=== PATIENT | male | born 1975 | race African-American/Black ===

== ENCOUNTER 2017-04-25 09:10 | Outpatient (CLI) | payer MEDICARE | END 2017-04-25 10:05 | disposition home or self-care (01) | LOC: D.OPS 09:10 | DX: T85.9XXA Unspecified complication of internal prosthetic device, implant and graft, initial encounter (principal); Z53.9 Procedure and treatment not carried out, unspecified reason ==

== ENCOUNTER → 2017-05-01 16:30 | Outpatient (CLI) | payer MEDICARE ==
[2017-05-01 19:23] LABS: BASOPHILS 0.3 % (0-2); EOSINOPHILS 11.7 % (0-7); HEMATOCRIT 34.5 % (42.0-54.0); HEMOGLOBIN 11.3 g/dL (13.5-17.5); IMMATURE GRANULOCYTES 0.1 % (0-5); LYMPHOCYTES 28.1 % (15-50); MCH 27.5 pg (26.0-34.0); MCHC 32.8 g/dL (31.0-37.0); MCV 83.9 fL (80.0-100.0); MEAN PLATELET VOLUME 9.3 fL (7.4-10.4); MONOCYTES 8.2 % (2-11); NEUTROPHILS 51.6 % (40-80); PLATELET COUNT 308 10x3/uL (130-400); RBC 4.11 10x6/uL (4.20-6.10); RDW 14.4 % (11.5-14.5); WBC 8.9 10x3/uL (4.8-10.8)
[2017-05-01 19:57] LABS: C-REACTIVE PROTEIN 2.9 mg/dL (0.0-0.9); CALC OSMOLALITY 269 mosm/kg (275-300); CALCIUM 9.4 mg/dL (8.5-10.1); CARBON DIOXIDE 29.5 mmol/L (21.0-32.0); CHLORIDE - SERUM 100 mmol/L (98-107); CREATININE - SERUM 0.7 mg/dL (0.6-1.3); GLUCOSE 76 mg/dL (74-106); POTASSIUM - SERUM 4.3 mmol/L (3.5-5.1); SODIUM 136 mmol/L (136-145); UREA NITROGEN 11 mg/dL (7-18); eGFR NON AFRICAN AMERICAN > 90 mL/min (90-120)
[2017-05-01 20:45] LABS: ERYTHROCYTE SEDIMENTATION RATE 99 mm/hr (0-15)
== END | disposition home or self-care (01) ==
LOC: D.LABREF 16:30
PROVIDERS: Student in an Organized Health Care Education/Training Program
DX: M46.20 Osteomyelitis of vertebra, site unspecified (principal); Z51.81 Encounter for therapeutic drug level monitoring; Z79.2 Long term (current) use of antibiotics

== ENCOUNTER → 2017-05-04 08:10 | Outpatient (CLI) | payer MEDICARE ==
[2017-05-04 09:41] LABS: CREATININE - SERUM 0.9 mg/dL (0.6-1.3); VANCOMYCIN - TROUGH 11.8 ug/mL (10.0-20.0)
== END | disposition home or self-care (01) ==
LOC: D.LABREF 08:10
PROVIDERS: Student in an Organized Health Care Education/Training Program
DX: Z51.81 Encounter for therapeutic drug level monitoring (principal); Z79.2 Long term (current) use of antibiotics

== ENCOUNTER → 2017-05-08 08:33 | Outpatient (CLI) | payer MEDICARE ==
[2017-05-08 10:57] LABS: BASOPHILS 0.4 % (0-2); EOSINOPHILS 12.2 % (0-7); HEMATOCRIT 32.2 % (42.0-54.0); HEMOGLOBIN 10.7 g/dL (13.5-17.5); IMMATURE GRANULOCYTES 0.2 % (0-5); LYMPHOCYTES 30.8 % (15-50); MCH 27.2 pg (26.0-34.0); MCHC 33.2 g/dL (31.0-37.0); MCV 81.9 fL (80.0-100.0); MONOCYTES 8.8 % (2-11); NEUTROPHILS 47.6 % (40-80); PLATELET COUNT 280 10x3/uL (130-400); RBC 3.93 10x6/uL (4.20-6.10); RDW 14.5 % (11.5-14.5); WBC 8.2 10x3/uL (4.8-10.8)
[2017-05-08 11:03] LABS: C-REACTIVE PROTEIN 3.6 mg/dL (0.0-0.9); CREATININE - SERUM 0.7 mg/dL (0.6-1.3); VANCOMYCIN - TROUGH 10.9 ug/mL (10.0-20.0)
[2017-05-08 12:07] LABS: ERYTHROCYTE SEDIMENTATION RATE 101 mm/hr (0-15)
== END | disposition home or self-care (01) ==
LOC: D.LABREF 08:33
PROVIDERS: Student in an Organized Health Care Education/Training Program
DX: M46.20 Osteomyelitis of vertebra, site unspecified (principal); B95.62 Methicillin resistant Staphylococcus aureus infection as the cause of diseases classified elsewhere

== ENCOUNTER → 2017-05-10 09:02 | Outpatient (CLI) | payer MEDICARE ==
[2017-05-10 10:41] LABS: CREATININE - SERUM 0.8 mg/dL (0.6-1.3); VANCOMYCIN - RANDOM 14.2 ug/mL (10.0-20.0)
== END | disposition home or self-care (01) ==
LOC: D.LABREF 09:02
PROVIDERS: Student in an Organized Health Care Education/Training Program
DX: M46.20 Osteomyelitis of vertebra, site unspecified (principal)

== ENCOUNTER → 2017-05-15 10:24 | Outpatient (CLI) | payer MEDICARE ==
[2017-05-15 13:41] LABS: BASOPHILS 0.2 % (0-2); EOSINOPHILS 4.2 % (0-7); HEMATOCRIT 30.8 % (42.0-54.0); IMMATURE GRANULOCYTES 0.2 % (0-5); LYMPHOCYTES 13.5 % (15-50); MCHC 32.5 g/dL (31.0-37.0); MEAN PLATELET VOLUME 9.1 fL (7.4-10.4); MONOCYTES 12.6 % (2-11); NEUTROPHILS 69.3 % (40-80); PLATELET COUNT 255 10x3/uL (130-400); RBC 3.71 10x6/uL (4.20-6.10); RDW 15.6 % (11.5-14.5); WBC 12.3 10x3/uL (4.8-10.8)
[2017-05-15 13:52] LABS: CREATININE - SERUM 1.5 mg/dL (0.6-1.3); VANCOMYCIN - TROUGH 34.9 ug/mL (10.0-20.0)
[2017-05-15 13:54] LABS: C-REACTIVE PROTEIN 28.2 mg/dL (0.0-0.9)
[2017-05-15 15:10] LABS: ERYTHROCYTE SEDIMENTATION RATE 95 mm/hr (0-15)
== END | disposition home or self-care (01) ==
LOC: D.LABREF 10:24
PROVIDERS: Student in an Organized Health Care Education/Training Program
DX: M46.20 Osteomyelitis of vertebra, site unspecified (principal)

== ENCOUNTER → 2017-05-21 16:01 | Outpatient (CLI) | payer MEDICARE ==
[2017-05-21 20:09] LABS: CALC OSMOLALITY 269 mosm/kg (275-300); CALCIUM 8.9 mg/dL (8.5-10.1); CARBON DIOXIDE 25.2 mmol/L (21.0-32.0); CHLORIDE - SERUM 99 mmol/L (98-107); POTASSIUM - SERUM 3.7 mmol/L (3.5-5.1); SODIUM 136 mmol/L (136-145); UREA NITROGEN 16 mg/dL (7-18); eGFR NON AFRICAN AMERICAN 87 mL/min (90-120)
[2017-05-21 20:19] LABS: GLUCOSE 49 mg/dL (74-106)
== END | disposition home or self-care (01) ==
LOC: D.LABREF 16:01
PROVIDERS: Student in an Organized Health Care Education/Training Program
DX: N17.9 Acute kidney failure, unspecified (principal)

== ENCOUNTER → 2017-06-15 11:10 | Outpatient (CLI) | payer MEDICARE ==
[~2017-06-15 11:10] MED LIST: ACETAMINOPHEN325 MG PO; CALMOSEPTINE OI71 GM TOPICAL; CLEOCIN HCL150 MG PO; FERREX 150 PLUS1 CAP PO; GLIPIZIDE10 MG PO; HUMULIN R100 U/ML SC; LOVASTATIN20 MG PO; OMEGA 3 FISH OI1 CAP PO; OMNICEF300 MG PO; VITAMIN B-1100 M1 PO; VITAMIN B650 MG PO; VITAMIN C1000 MG PO; VITAMIN D31000 UNI2 PO; ZOFRAN4 MG PO; ZOSYN 3.3753.375 G1 IV
[2017-06-15 13:05] LABS: BASOPHILS 0.4 % (0-2); EOSINOPHILS 11.2 % (0-7); HEMATOCRIT 32.8 % (42.0-54.0); HEMOGLOBIN 11.3 g/dL (13.5-17.5); IMMATURE GRANULOCYTES 0.1 % (0-5); LYMPHOCYTES 32.6 % (15-50); MCH 27.8 pg (26.0-34.0); MCHC 34.5 g/dL (31.0-37.0); MCV 80.6 fL (80.0-100.0); MEAN PLATELET VOLUME 9.4 fL (7.4-10.4); NEUTROPHILS 49.7 % (40-80); PLATELET COUNT 277 10x3/uL (130-400); RBC 4.07 10x6/uL (4.20-6.10); RDW 13.8 % (11.5-14.5); WBC 7.1 10x3/uL (4.8-10.8)
[2017-06-15 13:27] LABS: C-REACTIVE PROTEIN 4.2 mg/dL (0.0-0.9)
[2017-06-15 14:11] LABS: ERYTHROCYTE SEDIMENTATION RATE 125 mm/hr (0-15)
[2017-08-24 14:18] VITALS: BMI 32.6
== END | disposition home or self-care (01) ==
LOC: D.LABREF 11:10
PROVIDERS: Student in an Organized Health Care Education/Training Program
DX: M46.20 Osteomyelitis of vertebra, site unspecified (principal); Z51.81 Encounter for therapeutic drug level monitoring; Z79.2 Long term (current) use of antibiotics

== ENCOUNTER → 2017-07-06 14:06 | Outpatient (CLI) | payer MEDICARE ==
[2017-07-06 16:48] LABS: ERYTHROCYTE SEDIMENTATION RATE 55 mm/hr (0-15)
[2017-08-24 14:18] VITALS: BMI 32.6
== END | disposition home or self-care (01) ==
LOC: D.LABREF 14:06
PROVIDERS: Internal Medicine
DX: Z51.81 Encounter for therapeutic drug level monitoring (principal); Z79.2 Long term (current) use of antibiotics; M46.20 Osteomyelitis of vertebra, site unspecified

== ENCOUNTER 2017-07-12 10:04 | Inpatient (IN) | payer MEDICARE ==
[2017-07-12] VITALS (12 sets, daily range): BP systolic 80–113; BP diastolic 48–73; BMI 32.8
[~2017-07-12] VITALS: Ht 175.3 cm; Wt 107.7 kg
--- NOTE | ~2017-07-12 | OP ---
PATIENT NAME: ADRIANA MARTINEZ MEDICAL RECORD: [id number] :71 LOCATION:D.M2 D.2105 ADMISSION DATE:07/12/17 SURGEON: RODRIGUE OWUSU MD DATE OF OPERATION: 07/25/2017 PROCEDURE: Transesophageal Note. After general sedation via TIVA anesthesia, transesophageal Omniplane probe was placed down the distal esophagus and proximal stomach without difficulty. FINDINGS: LVH is present. LV internal dimension is normal. Wall motion normal. EF is greater than or equal to 55%. Aortic valve is tricuspid with excellent valve excursion. No evidence of vegetation. Left atrium appears normal dimensions. Left atrial appendage appears normal. Mitral valve appears with normal thickness with no evidence of vegetation. Right-sided chambers appear grossly normal. Tricuspid valve is well visualized. No evidence of vegetation. IMPRESSION: No evidence of vegetation. Normal cardiac valves. TRANSINT:[id number] Voice Confirmation ID: [id number] DOCUMENT ID: [id number] RODRIGUE OWUSU MD at 1132 CC: [id number] DICTATION DATE: 07/25/17 1432 CLOTH DYE RANGE OPERATOR: 07/25/17 1447 ADM IN [facility] [address] [id number]
--- NOTE | ~2017-07-12 | HEMODYNAMI ---
PATIENT:ADRIANA MARTINEZ MEDICAL RECORD: [id number] : 71 LOCATION:[facility] D.2105 ADMISSION DATE: 07/12/17 Generatedon:07/25/201714:40 Patient name: ADRIANA MARTINEZ Patient #: [id number] SSN: : 1975 Date of study: 07/25/2017 Page: Of Hemodynamic Procedure Report Patient Data Patient Demographics Procedure consent was obtained First Name: ADRIANA Gender: Male Last Name: JUAN : 1975 Patient #: [id number] Age: 42 year(s) Race: Black Additional ID: [id number] Contact details Address: [facility] [address] State: [place] City: [facility] Zip code: [address] Admission Admission Data Admission Date: 07/12/2017 Admission Time: 13:22 Room #: D.2105 Procedure Procedure Types Cath Procedure Diagnostic Procedure MASON Procedure Description Procedure Date Procedure Date: 07/25/2017 Procedure Start Time: 14:25 Procedure End Time: 14:33 Procedure Staff Name Function Finesse Parrish MD Performing Physician Tyrell Rico RT Monitor Morgan Thomas RN Nurse Ruben Condon Jr, CRNA Additional personnel Camille Garner Truck Driver Supervisor Procedure Data Cath Procedure Estimated blood loss: 0 ml Procedure Complications No complications Hemodynamics Rest Pre Cath Intra NCS Post Cath Vital Signs Time Heart Resp SPO2 etCO2 NIBP Rhythm Pain Sedation Rate (ipm) (%) (mmHg) (mmHg) Status Level (bpm) 14:20:38 95 15 97 0 Disturbed NSR 0 (11) 10(A) , No pain 14:22:31 90 4 96 0 120/69(86) NSR 0 (11) 10(A) , No pain 14:26:43 85 20 100 31.3 102/63(77) NSR 0 (11) 10(A) , No pain 14:30:52 84 18 100 29.8 109/59(79) NSR 0 (11) 10(A) , No pain Procedure Log Time Note 13:45:46 Tyrell Rico RT(R) sent for patient. Start room use. 13:51:47 Time tracking: Regular hours (M-F 7:00 - 5:00) 13:51:51 Plan of Care:Hemodynamics will remain stable., Cardiac rhythm will remain stable., Comfort level will be maintained., Respiratory function will remain adequate., Patient/ family verbilizes understanding of procedure., Procedure tolerated without complication., Recovers from procedure without complications.. 14:00:26 Ruben Condon Jr, CRNA present and monitoring patient for TIVA. 14:18:59 Vital chart was started 14:21:48 Camille Letart Meteorology Teacher present for MASON. 14:24:[address] [facility] to CCL 3. Patient remains on bed/stretcher for procedure. 14:24:08 Warm blankets applied, and srini hugger turned on for patient comfort. 14:24:09 Correct patient and procedure confirmed by team. 14:24:10 Signed procedure consent form obtained from patient. 14:24:10 ECG and BP/O2 sat monitors applied to patient. 14:24:13 Pre-procedure instructions explained to patient. 14:24:13 Pre-op teaching completed and patient verbalized understanding. 14:24:16 Family in patients room. 14:24:18 Patient NPO since Midnight. 14:24:32 Is the patient allergic to Iodine/contrast media? No. 14:24:34 Is patient on blood thinner?No 14:24:37 Patient diabetic? Yes. 14:24:38 If diabetic: On Metformin? Unknown 14:24:41 Previous problem with sedation/anesthesia? No ? 14:24:42 Snore? Yes 14:24:43 Sleep apnea? No 14:24:44 Deviated septum? No 14:24:45 Opens mouth fully? Yes 14:24:46 Sticks out tongue? Yes 14:24:51 Airway obstruction? No ? 14:24:53 Dentures? No ? 14:24:57 Patient pain scale 0/10 ?. 14:25:01 IV patent on arrival in right forearm with 0.9% NaCl at [facility]. 14:25:03 Lab results completed and on chart. 14:25:05 Alarms reviewed by Sheri Cervantes 14:25:05 --------ALL STOP TIME OUT------ 14:25:06 Final Timeout: patient, procedure, and site verified with staff and physician. All members of the team are in agreement. 14:25:12 Physical assessment completed. ASA score P 4 - A patient with severe systemic disease that is a constant threat to life as per Finesse Parrish MD. 14:25:21 Sedation plan: TIVA Medication:Propofol 14::29 Procedure started. 14::29 Full Disclosure recording started 14:26:54 MASON started. 14:29:18 MASON completed. 14:29:23 Procedure ended.(Physican Out) 14:32:25 Post-procedure physical assessment completed. ASA score P 4 - A patient with severe systemic disease that is a constant threat to life as per Finesse Parrish MD. 14:32:29 Post procedure rhythm: unchanged. 14:32:31 Estimated blood loss: 0 ml 14:32:33 Post procedure instruction explained to patient.Patient verbalizes understanding. 14:32:33 Patient needs reinforcement of post procedure teaching. 14:32:37 Procedure and supply charges have been captured, reviewed, submitted and are correct. 14:32:40 Procedure Complication : No complications 14:33:01 Vital chart was stopped 14:33:01 See physician's report for complete and final results. 14:33:04 Report given to Med II. 14:33:08 Patient transfered to Med II with Bed. 14:33:10 Procedure ended. 14:33:10 Full Disclosure recording stopped 14:33:13 End room use (Document Last) Signature Audit Elnora Stage Time Signature Unsigned Intra-Procedure 07/25/2017 Tyrell Rico 2:40:08 PM RT(R) Signatures Monitor : Tyrell Rico RT Signature : Date : Time : [id number] [facility] [place] [address]
[2017-07-12 11:22] LABS: APPEARANCE TURBID (CLEAR); BILIRUBIN NEGATIVE (NEGATIVE); COLOR YELLOW (YELLOW); GLUCOSE NEGATIVE (NEGATIVE); KETONE NEGATIVE (NEGATIVE); NITRITE POSITIVE (NEGATIVE); PROTEIN 1+ mg/dL (NEGATIVE); SPECIFIC GRAVITY 1.015 (1.005-1.020); UROBILINOGEN NORMAL (NORMAL)
[2017-07-12 11:23] LABS: BACTERIA MANY /hpf (NONE SEEN); EPITHELIAL CELLS RARE /hpf (0-5); RED CELLS - URINE NONE SEEN /hpf (0-5); TRIPLE PHOSPHATE CRYSTALS 25-50 /hpf (NONE SEEN)
[2017-07-12 11:32] LABS: INR 1.53 (0.85-1.17); PROTIME 17.9 SECONDS (11.6-15.0)
[2017-07-12 11:36] LABS: KETONE - SERUM NEGATIVE (NEGATIVE)
[2017-07-12 11:43] LABS: HEMATOCRIT 35.1 % (42.0-54.0); HEMOGLOBIN 11.9 g/dL (13.5-17.5); MCH 28.5 pg (26.0-34.0); MCHC 33.9 g/dL (31.0-37.0); MCV 84.2 fL (80.0-100.0); MEAN PLATELET VOLUME 9.2 fL (7.4-10.4); PLATELET COUNT 225 10x3/uL (130-400); RBC 4.17 10x6/uL (4.20-6.10); RDW 15.7 % (11.5-14.5); WBC 34.9 10x3/uL (4.8-10.8)
[2017-07-12 11:53] LABS: ALBUMIN 2.9 g/dL (3.4-5.0); ALKALINE PHOSPHATASE 81 U/L (46-116); ALT (SGPT) 23 U/L (10-68); CALC OSMOLALITY 283 mosm/kg (275-300); CALCIUM 8.8 mg/dL (8.5-10.1); CARBON DIOXIDE 17.7 mmol/L (21.0-32.0); CHLORIDE - SERUM 102 mmol/L (98-107); CREATINE KINASE 203 UL (21-232); CREATININE - SERUM 4.8 mg/dL (0.6-1.3); LIPASE 52 U/L (73-393); MAGNESIUM - SERUM 1.3 mg/dL (1.8-2.4); POTASSIUM - SERUM 5.1 mmol/L (3.5-5.1); PRO BNP 1101 pg/mL (0-125); PROTEIN - SERUM 8.1 g/dL (6.4-8.2); SODIUM 135 mmol/L (136-145); TROPONIN-I < 0.017 ng/mL (0.000-0.060); UREA NITROGEN 33 mg/dL (7-18); eGFR NON AFRICAN AMERICAN 14 mL/min (90-120)
[2017-07-12 11:56] LABS: GLUCOSE 225 mg/dL (74-106)
[2017-07-12 13:38] LABS: APPEARANCE TURBID (CLEAR); BACTERIA MANY /hpf (NONE SEEN); BILIRUBIN NEGATIVE (NEGATIVE); COLOR RED (YELLOW); EPITHELIAL CELLS RARE /hpf (0-5); GLUCOSE NEGATIVE (NEGATIVE); GRANULAR CAST RARE /lpf (NONE SEEN); KETONE NEGATIVE (NEGATIVE); MUCUS <1+ /lpf (NONE SEEN); NITRITE POSITIVE (NEGATIVE); PROTEIN 3+ mg/dL (NEGATIVE); RED CELLS - URINE >50 /hpf (0-5); SPECIFIC GRAVITY 1.005 (1.005-1.020); UROBILINOGEN NORMAL (NORMAL); WHITE CELLS - URINE >50 /hpf (0-5)
[2017-07-12 13:39] LABS: AMORPHOUS SEDIMENT <1+ /lpf (NONE SEEN)
[2017-07-12 14:05] LABS: EOSINOPHILS 1 % (0-7); LYMPHOCYTES 2 % (15-50); MONOCYTES 8 % (2-11); NEUTROPHILS 62 % (40-80)
[2017-07-12 14:06] LABS: PLATELET ESTIMATE NORMAL; ROULEAUX OCC
[2017-07-12] MEDS ORDERED: CLEOCIN HCL150 MG PO (15:24)
[2017-07-12] MEDS ORDERED: GLIPIZIDE10 MG PO (15:25)
[2017-07-12] MEDS ORDERED: LOVASTATIN20 MG PO (15:25)
[2017-07-13] VITALS (19 sets, daily range): BP systolic 88–112; BP diastolic 46–62; Ht 175.3 cm; Wt 107.7 kg
[2017-07-13 03:57] LABS: BASOPHILS 0 % (0-2); EOSINOPHILS 0.2 % (0-7); HEMATOCRIT 27.8 % (42.0-54.0); HEMOGLOBIN 9.6 g/dL (13.5-17.5); IMMATURE GRANULOCYTES 1.6 % (0-5); MCH 28.3 pg (26.0-34.0); MCHC 34.5 g/dL (31.0-37.0); MEAN PLATELET VOLUME 9.8 fL (7.4-10.4); MONOCYTES 5.1 % (2-11); NEUTROPHILS 90.1 % (40-80); PLATELET COUNT 146 10x3/uL (130-400); RBC 3.39 10x6/uL (4.20-6.10); RDW 15.7 % (11.5-14.5); WBC 20.9 10x3/uL (4.8-10.8)
[2017-07-13 04:21] LABS: ALBUMIN 2.3 g/dL (3.4-5.0); BILIRUBIN - TOTAL 0.7 mg/dL (0.2-1.3); CALCIUM 7.7 mg/dL (8.5-10.1); CARBON DIOXIDE 20.9 mmol/L (21.0-32.0); CREATININE - SERUM 3.8 mg/dL (0.6-1.3); PROTEIN - SERUM 6.8 g/dL (6.4-8.2); THYROID STIMULATING HORMONE 1.56 uIU/mL (0.36-3.74); VANCOMYCIN - RANDOM 1.8 ug/mL (10.0-20.0)
[2017-07-13 04:30] LABS: ANION GAP 15.9 mmol/L (8-16); POTASSIUM - SERUM 3.8 mmol/L (3.5-5.1)
[2017-07-13 04:35] LABS: INR 1.97 (0.85-1.17); PROTIME 21.9 SECONDS (11.6-15.0)
[2017-07-14 05:40] LABS: BASOPHILS 0.1 % (0-2); EOSINOPHILS 0.1 % (0-7); HEMATOCRIT 26.6 % (42.0-54.0); HEMOGLOBIN 9.4 g/dL (13.5-17.5); IMMATURE GRANULOCYTES 0.4 % (0-5); LYMPHOCYTES 7.4 % (15-50); MCH 28.5 pg (26.0-34.0); MCHC 35.3 g/dL (31.0-37.0); MCV 80.6 fL (80.0-100.0); MONOCYTES 6.4 % (2-11); NEUTROPHILS 85.6 % (40-80); RDW 15.8 % (11.5-14.5); WBC 16.7 10x3/uL (4.8-10.8)
[2017-07-14 05:42] LABS: PLATELET COUNT 107 10x3/uL (130-400)
[2017-07-14 05:50] VITALS: BP 101/54
[2017-07-14 06:16] LABS: ALBUMIN 2.1 g/dL (3.4-5.0); BILIRUBIN - TOTAL 1.4 mg/dL (0.2-1.3); CALCIUM 7.3 mg/dL (8.5-10.1); CARBON DIOXIDE 19.6 mmol/L (21.0-32.0); PROTEIN - SERUM 6.7 g/dL (6.4-8.2); VANCOMYCIN - RANDOM 8.7 ug/mL (10.0-20.0)
[2017-07-14 06:17] LABS: ANION GAP 15.6 mmol/L (8-16); CREATININE - SERUM 2.6 mg/dL (0.6-1.3); POTASSIUM - SERUM 3.2 mmol/L (3.5-5.1)
[2017-07-14 08:13] VITALS: BP 98/53
[2017-07-14 11:25] VITALS: BP 86/38
[2017-07-14 12:22] VITALS: BP 122/67
[2017-07-14 15:44] VITALS: BP 104/57
[2017-07-14 20:30] VITALS: BP 171/86
[2017-07-15 00:30] VITALS: BP 117/62
[2017-07-15 04:30] VITALS: BP 107/55
[2017-07-15 06:20] LABS: BASOPHILS 0.2 % (0-2); EOSINOPHILS 1.1 % (0-7); HEMOGLOBIN 8.9 g/dL (13.5-17.5); IMMATURE GRANULOCYTES 0.4 % (0-5); LYMPHOCYTES 9.6 % (15-50); MCH 28.2 pg (26.0-34.0); MCHC 35.6 g/dL (31.0-37.0); MCV 79.1 fL (80.0-100.0); MEAN PLATELET VOLUME 9.6 fL (7.4-10.4); MONOCYTES 9.7 % (2-11); PLATELET COUNT 105 10x3/uL (130-400); RBC 3.16 10x6/uL (4.20-6.10); WBC 13.1 10x3/uL (4.8-10.8)
[2017-07-15 06:45] LABS: BILIRUBIN - TOTAL 1.51 mg/dL (0.2-1.3); CALCIUM 7.4 mg/dL (8.5-10.1); CARBON DIOXIDE 17.8 mmol/L (21.0-32.0); CREATININE - SERUM 1.8 mg/dL (0.6-1.3); PROTEIN - SERUM 6.6 g/dL (6.4-8.2)
[2017-07-15 06:46] LABS: ANION GAP 16.9 mmol/L (8-16); POTASSIUM - SERUM 2.7 mmol/L (3.5-5.1)
[2017-07-15 08:29] VITALS: BP 130/72
[2017-07-15 11:31] VITALS: BP 118/64
[2017-07-15 15:47] VITALS: BP 129/74
[2017-07-15 20:30] VITALS: BP 107/60
[2017-07-16 00:30] VITALS: BP 110/57
[2017-07-16 04:30] VITALS: BP 108/62
[2017-07-16 05:05] LABS: BASOPHILS 0.2 % (0-2); EOSINOPHILS 1.6 % (0-7); HEMATOCRIT 24.5 % (42.0-54.0); HEMOGLOBIN 8.8 g/dL (13.5-17.5); IMMATURE GRANULOCYTES 0.5 % (0-5); LYMPHOCYTES 11.5 % (15-50); MCH 28.2 pg (26.0-34.0); MCHC 35.9 g/dL (31.0-37.0); MCV 78.5 fL (80.0-100.0); MEAN PLATELET VOLUME 9.8 fL (7.4-10.4); NEUTROPHILS 71.2 % (40-80); PLATELET COUNT 123 10x3/uL (130-400); RBC 3.12 10x6/uL (4.20-6.10); WBC 11.1 10x3/uL (4.8-10.8)
[2017-07-16 05:29] LABS: ALBUMIN 1.8 g/dL (3.4-5.0); ANION GAP 15.2 mmol/L (8-16); BILIRUBIN - TOTAL 1.48 mg/dL (0.2-1.3); CALCIUM 7.8 mg/dL (8.5-10.1); CARBON DIOXIDE 18.3 mmol/L (21.0-32.0); CREATININE - SERUM 1.5 mg/dL (0.6-1.3); POTASSIUM - SERUM 3.5 mmol/L (3.5-5.1); PROTEIN - SERUM 6.5 g/dL (6.4-8.2)
[2017-07-16 08:21] VITALS: BP 118/61
[2017-07-16 12:15] VITALS: BP 113/65
[2017-07-16 17:24] VITALS: BP 136/82
[2017-07-16 20:00] VITALS: BP 118/67
[2017-07-17 06:46] VITALS: BP 111/67
[2017-07-17 07:11] LABS: BASOPHILS 0.2 % (0-2); EOSINOPHILS 2.2 % (0-7); HEMATOCRIT 24.8 % (42.0-54.0); HEMOGLOBIN 8.8 g/dL (13.5-17.5); IMMATURE GRANULOCYTES 0.7 % (0-5); LYMPHOCYTES 15.3 % (15-50); MCH 28.5 pg (26.0-34.0); MCHC 35.5 g/dL (31.0-37.0); MCV 80.3 fL (80.0-100.0); MEAN PLATELET VOLUME 9.6 fL (7.4-10.4); MONOCYTES 15.1 % (2-11); NEUTROPHILS 66.5 % (40-80); PLATELET COUNT 144 10x3/uL (130-400); RBC 3.09 10x6/uL (4.20-6.10); RDW 15.9 % (11.5-14.5)
[2017-07-17 07:29] LABS: ALBUMIN 1.8 g/dL (3.4-5.0); ANION GAP 13.2 mmol/L (8-16); BILIRUBIN - TOTAL 1.34 mg/dL (0.2-1.3); CALCIUM 8.1 mg/dL (8.5-10.1); CARBON DIOXIDE 21.3 mmol/L (21.0-32.0); CREATININE - SERUM 1.3 mg/dL (0.6-1.3); POTASSIUM - SERUM 3.5 mmol/L (3.5-5.1); PROTEIN - SERUM 6.6 g/dL (6.4-8.2)
[2017-07-17 08:51] VITALS: BP 107/74
[2017-07-17 12:29] VITALS: BP 117/74
[2017-07-17 17:28] VITALS: BP 106/79
[2017-07-17 20:00] VITALS: BP 119/69
[2017-07-18 04:00] VITALS: BP 124/68
[2017-07-18 08:00] VITALS: BP 125/76
[2017-07-18 12:00] VITALS: BP 126/66
[2017-07-18 17:09] VITALS: BP 167/93
[2017-07-18 21:01] VITALS: BP 136/67
[2017-07-19 05:55] LABS: BASOPHILS 0.2 % (0-2); HEMATOCRIT 22.4 % (42.0-54.0); IMMATURE GRANULOCYTES 0.6 % (0-5); LYMPHOCYTES 16.5 % (15-50); MCH 28.8 pg (26.0-34.0); MCHC 35.7 g/dL (31.0-37.0); MCV 80.6 fL (80.0-100.0); MEAN PLATELET VOLUME 9.3 fL (7.4-10.4); MONOCYTES 10.3 % (2-11); NEUTROPHILS 66.4 % (40-80); RBC 2.78 10x6/uL (4.20-6.10); RDW 15.7 % (11.5-14.5); WBC 12.4 10x3/uL (4.8-10.8)
[2017-07-19 06:01] LABS: PLATELET COUNT 270 10x3/uL (130-400)
[2017-07-19 06:21] LABS: CALC OSMOLALITY 274 mosm/kg (275-300); CARBON DIOXIDE 23.3 mmol/L (21.0-32.0); CHLORIDE - SERUM 101 mmol/L (98-107); GLUCOSE 238 mg/dL (74-106); POTASSIUM - SERUM 3.3 mmol/L (3.5-5.1); SODIUM 134 mmol/L (136-145); eGFR NON AFRICAN AMERICAN 86 mL/min (90-120)
[2017-07-19 06:22] VITALS: BP 125/59
[2017-07-19 06:25] LABS: UREA NITROGEN 9 mg/dL (7-18)
[2017-07-19 08:51] VITALS: BP 131/73
[2017-07-19 11:40] VITALS: BP 149/75
[2017-07-19 16:48] VITALS: BP 135/65
[2017-07-19 22:13] VITALS: BP 153/78
[2017-07-20 01:26] VITALS: BP 137/63
[2017-07-20 04:17] LABS: BASOPHILS 0.2 % (0-2); EOSINOPHILS 4.3 % (0-7); HEMATOCRIT 23.6 % (42.0-54.0); HEMOGLOBIN 8.2 g/dL (13.5-17.5); IMMATURE GRANULOCYTES 0.6 % (0-5); MCH 28.4 pg (26.0-34.0); MCHC 34.7 g/dL (31.0-37.0); MCV 81.7 fL (80.0-100.0); MONOCYTES 9.1 % (2-11); NEUTROPHILS 69.8 % (40-80); RBC 2.89 10x6/uL (4.20-6.10); RDW 15.6 % (11.5-14.5); WBC 14.7 10x3/uL (4.8-10.8)
[2017-07-20 04:19] LABS: PLATELET COUNT 371 10x3/uL (130-400)
[2017-07-20 04:49] LABS: CALC OSMOLALITY 274 mosm/kg (275-300); CALCIUM 7.8 mg/dL (8.5-10.1); CARBON DIOXIDE 25.1 mmol/L (21.0-32.0); CHLORIDE - SERUM 100 mmol/L (98-107); GLUCOSE 253 mg/dL (74-106); POTASSIUM - SERUM 3.5 mmol/L (3.5-5.1); SODIUM 134 mmol/L (136-145); eGFR NON AFRICAN AMERICAN 86 mL/min (90-120)
[2017-07-20 05:00] VITALS: BP 135/75
[2017-07-20 05:02] LABS: UREA NITROGEN 6 mg/dL (7-18)
[2017-07-20 08:38] VITALS: BP 146/80
[2017-07-20 11:40] VITALS: BP 155/76
[2017-07-20 15:47] VITALS: BP 167/83
[2017-07-20 20:00] VITALS: BP 151/76
[2017-07-21 01:00] VITALS: BP 149/74
[2017-07-21 04:50] LABS: BASOPHILS 0.2 % (0-2); HEMATOCRIT 23.4 % (42.0-54.0); HEMOGLOBIN 8.1 g/dL (13.5-17.5); IMMATURE GRANULOCYTES 0.6 % (0-5); LYMPHOCYTES 16.2 % (15-50); MCH 28.5 pg (26.0-34.0); MCHC 34.6 g/dL (31.0-37.0); MCV 82.4 fL (80.0-100.0); MEAN PLATELET VOLUME 8.9 fL (7.4-10.4); MONOCYTES 9.3 % (2-11); NEUTROPHILS 69.7 % (40-80); PLATELET COUNT 406 10x3/uL (130-400); RBC 2.84 10x6/uL (4.20-6.10); RDW 15.4 % (11.5-14.5); WBC 12.8 10x3/uL (4.8-10.8)
[2017-07-21 04:57] LABS: CALC OSMOLALITY 279 mosm/kg (275-300); CALCIUM 7.9 mg/dL (8.5-10.1); CARBON DIOXIDE 25.4 mmol/L (21.0-32.0); CHLORIDE - SERUM 102 mmol/L (98-107); GLUCOSE 240 mg/dL (74-106); POTASSIUM - SERUM 3.2 mmol/L (3.5-5.1); SODIUM 137 mmol/L (136-145); UREA NITROGEN 6 mg/dL (7-18); eGFR NON AFRICAN AMERICAN 86 mL/min (90-120)
[2017-07-21 05:00] VITALS: BP 143/79
[2017-07-21 08:15] VITALS: BP 122/62
[2017-07-21 11:31] VITALS: BP 128/60
[2017-07-21 16:44] VITALS: BP 147/81
[2017-07-21 20:00] VITALS: BP 150/83
[2017-07-22 01:00] VITALS: BP 130/70
[2017-07-22 05:00] VITALS: BP 134/71
[2017-07-22 06:17] LABS: BASOPHILS 0.3 % (0-2); EOSINOPHILS 5.6 % (0-7); HEMATOCRIT 24.6 % (42.0-54.0); HEMOGLOBIN 8.4 g/dL (13.5-17.5); IMMATURE GRANULOCYTES 0.6 % (0-5); LYMPHOCYTES 19.2 % (15-50); MCH 28.5 pg (26.0-34.0); MCHC 34.1 g/dL (31.0-37.0); MCV 83.4 fL (80.0-100.0); MONOCYTES 8.7 % (2-11); NEUTROPHILS 65.6 % (40-80); RBC 2.95 10x6/uL (4.20-6.10); RDW 15.3 % (11.5-14.5); WBC 11.5 10x3/uL (4.8-10.8)
[2017-07-22 06:19] LABS: PLATELET COUNT 507 10x3/uL (130-400)
[2017-07-22 06:47] LABS: CALC OSMOLALITY 280 mosm/kg (275-300); CALCIUM 8.1 mg/dL (8.5-10.1); CARBON DIOXIDE 27.2 mmol/L (21.0-32.0); CHLORIDE - SERUM 102 mmol/L (98-107); GLUCOSE 227 mg/dL (74-106); POTASSIUM - SERUM 3.5 mmol/L (3.5-5.1); SODIUM 138 mmol/L (136-145); UREA NITROGEN 6 mg/dL (7-18); eGFR NON AFRICAN AMERICAN 86 mL/min (90-120)
[2017-07-22 09:53] VITALS: BP 129/76
[2017-07-22 12:49] VITALS: BP 143/82
[2017-07-22 16:30] VITALS: BP 146/76
[2017-07-22 20:00] VITALS: BP 138/60
[2017-07-23 01:00] VITALS: BP 131/72
[2017-07-23 05:00] VITALS: BP 144/73
[2017-07-23 05:20] LABS: BASOPHILS 0.2 % (0-2); EOSINOPHILS 5.5 % (0-7); HEMATOCRIT 24.4 % (42.0-54.0); HEMOGLOBIN 8.3 g/dL (13.5-17.5); IMMATURE GRANULOCYTES 0.4 % (0-5); MCH 28.4 pg (26.0-34.0); MCV 83.6 fL (80.0-100.0); MEAN PLATELET VOLUME 8.6 fL (7.4-10.4); MONOCYTES 7.5 % (2-11); NEUTROPHILS 65.4 % (40-80); PLATELET COUNT 516 10x3/uL (130-400); RBC 2.92 10x6/uL (4.20-6.10); WBC 9.9 10x3/uL (4.8-10.8)
[2017-07-23 05:30] LABS: CALC OSMOLALITY 278 mosm/kg (275-300); CALCIUM 8.2 mg/dL (8.5-10.1); CARBON DIOXIDE 29.4 mmol/L (21.0-32.0); CHLORIDE - SERUM 100 mmol/L (98-107); GLUCOSE 185 mg/dL (74-106); POTASSIUM - SERUM 3.4 mmol/L (3.5-5.1); SODIUM 138 mmol/L (136-145); UREA NITROGEN 6 mg/dL (7-18); eGFR NON AFRICAN AMERICAN 86 mL/min (90-120)
[2017-07-23 08:30] VITALS: BP 131/68
[2017-07-23 11:28] VITALS: BP 127/65
[2017-07-23 15:45] VITALS: BP 139/68
[2017-07-23 20:29] VITALS: BP 121/58
[2017-07-24 01:05] VITALS: BP 149/85
[2017-07-24 05:58] VITALS: BP 135/73
[2017-07-24 06:46] LABS: BASOPHILS 0.2 % (0-2); EOSINOPHILS 6.3 % (0-7); HEMATOCRIT 25.9 % (42.0-54.0); HEMOGLOBIN 8.7 g/dL (13.5-17.5); IMMATURE GRANULOCYTES 0.3 % (0-5); LYMPHOCYTES 24.2 % (15-50); MCH 28.2 pg (26.0-34.0); MCHC 33.6 g/dL (31.0-37.0); MCV 84.1 fL (80.0-100.0); MEAN PLATELET VOLUME 8.5 fL (7.4-10.4); MONOCYTES 8.5 % (2-11); NEUTROPHILS 60.5 % (40-80); PLATELET COUNT 547 10x3/uL (130-400); RBC 3.08 10x6/uL (4.20-6.10); RDW 14.8 % (11.5-14.5); WBC 8.9 10x3/uL (4.8-10.8)
[2017-07-24 06:56] LABS: ALBUMIN 2.1 g/dL (3.4-5.0); ALKALINE PHOSPHATASE 100 U/L (46-116); ALT (SGPT) 11 U/L (10-68); CALC OSMOLALITY 278 mosm/kg (275-300); CALCIUM 8.5 mg/dL (8.5-10.1); CARBON DIOXIDE 29.3 mmol/L (21.0-32.0); CHLORIDE - SERUM 100 mmol/L (98-107); CREATININE - SERUM 1.1 mg/dL (0.6-1.3); GLUCOSE 180 mg/dL (74-106); POTASSIUM - SERUM 3.5 mmol/L (3.5-5.1); PROTEIN - SERUM 7.9 g/dL (6.4-8.2); SODIUM 138 mmol/L (136-145); UREA NITROGEN 7 mg/dL (7-18); eGFR NON AFRICAN AMERICAN 77 mL/min (90-120)
[2017-07-24 08:21] VITALS: BP 132/65
[2017-07-24 13:51] VITALS: BP 150/78
[2017-07-24 17:01] VITALS: BP 159/79
[2017-07-24 21:03] VITALS: BP 134/78
[2017-07-25 01:23] VITALS: BP 117/63
[2017-07-25 05:29] VITALS: BP 118/55
[2017-07-25 05:56] LABS: BASOPHILS 0.4 % (0-2); EOSINOPHILS 6.7 % (0-7); HEMATOCRIT 25.7 % (42.0-54.0); HEMOGLOBIN 8.7 g/dL (13.5-17.5); IMMATURE GRANULOCYTES 0.5 % (0-5); LYMPHOCYTES 26.2 % (15-50); MCH 28.2 pg (26.0-34.0); MCHC 33.9 g/dL (31.0-37.0); MCV 83.4 fL (80.0-100.0); MEAN PLATELET VOLUME 8.5 fL (7.4-10.4); MONOCYTES 7.2 % (2-11); RBC 3.08 10x6/uL (4.20-6.10); RDW 14.7 % (11.5-14.5); WBC 7.6 10x3/uL (4.8-10.8)
[2017-07-25 06:03] LABS: PLATELET COUNT 436 10x3/uL (130-400)
[2017-07-25 06:14] LABS: ALBUMIN 2.2 g/dL (3.4-5.0); ALKALINE PHOSPHATASE 100 U/L (46-116); ALT (SGPT) 12 U/L (10-68); BILIRUBIN - TOTAL 0.28 mg/dL (0.2-1.3); CALC OSMOLALITY 278 mosm/kg (275-300); CALCIUM 8.3 mg/dL (8.5-10.1); CARBON DIOXIDE 30.1 mmol/L (21.0-32.0); CHLORIDE - SERUM 101 mmol/L (98-107); GLUCOSE 227 mg/dL (74-106); POTASSIUM - SERUM 3.7 mmol/L (3.5-5.1); PROTEIN - SERUM 7.2 g/dL (6.4-8.2); SODIUM 137 mmol/L (136-145); UREA NITROGEN 8 mg/dL (7-18); eGFR NON AFRICAN AMERICAN 86 mL/min (90-120)
[2017-07-25 10:15] VITALS: BP 121/64
[2017-07-25 12:31] VITALS: BP 104/70
[2017-07-25 12:51] LABS: % SATURATION 22 % (15-55); IRON 34 ug/dl (35-150); TOTAL IRON BIND CAPACITY 153 ug/dl (260-445); UNSAT IRON BIND CAPACITY 119 ug/dl (150-375)
[2017-07-25 18:21] VITALS: BP 153/86
[2017-07-25 20:54] VITALS: BP 120/73
[2017-07-26 01:59] VITALS: BP 151/84
[2017-07-26 05:57] VITALS: BP 135/72
[2017-07-26 06:19] LABS: BASOPHILS 0.4 % (0-2); EOSINOPHILS 4.4 % (0-7); HEMATOCRIT 24.7 % (42.0-54.0); HEMOGLOBIN 8.3 g/dL (13.5-17.5); IMMATURE GRANULOCYTES 0.3 % (0-5); LYMPHOCYTES 24.6 % (15-50); MCHC 33.6 g/dL (31.0-37.0); MCV 83.4 fL (80.0-100.0); MEAN PLATELET VOLUME 8.3 fL (7.4-10.4); MONOCYTES 7.8 % (2-11); NEUTROPHILS 62.5 % (40-80); PLATELET COUNT 441 10x3/uL (130-400); RBC 2.96 10x6/uL (4.20-6.10); RDW 14.4 % (11.5-14.5); WBC 7.9 10x3/uL (4.8-10.8)
[2017-07-26 06:37] LABS: ALBUMIN 2.2 g/dL (3.4-5.0); ALKALINE PHOSPHATASE 94 U/L (46-116); ALT (SGPT) 10 U/L (10-68); BILIRUBIN - TOTAL 0.43 mg/dL (0.2-1.3); CALC OSMOLALITY 279 mosm/kg (275-300); CALCIUM 8.4 mg/dL (8.5-10.1); CARBON DIOXIDE 28.5 mmol/L (21.0-32.0); CHLORIDE - SERUM 99 mmol/L (98-107); CREATININE - SERUM 0.9 mg/dL (0.6-1.3); GLUCOSE 269 mg/dL (74-106); POTASSIUM - SERUM 3.6 mmol/L (3.5-5.1); PROTEIN - SERUM 7.9 g/dL (6.4-8.2); SODIUM 136 mmol/L (136-145); UREA NITROGEN 9 mg/dL (7-18); eGFR NON AFRICAN AMERICAN > 90 mL/min (90-120)
[2017-07-26 07:00] VITALS: BP 128/77
[2017-07-26 09:16] LABS: FOLATE (FOLIC ACID) - SERUM 5.8 ng/mL (>3.0)
[2017-07-26 13:38] VITALS: BP 154/99
[2017-07-26 17:12] VITALS: BP 130/70
[2017-07-26 20:00] VITALS: BP 146/81
[2017-07-27 01:00] VITALS: BP 131/81
[2017-07-27 04:30] VITALS: BP 144/79
[2017-07-27 06:35] LABS: BASOPHILS 0.2 % (0-2); HEMATOCRIT 25.5 % (42.0-54.0); HEMOGLOBIN 8.4 g/dL (13.5-17.5); IMMATURE GRANULOCYTES 0.1 % (0-5); LYMPHOCYTES 27.3 % (15-50); MCH 27.6 pg (26.0-34.0); MCHC 32.9 g/dL (31.0-37.0); MCV 83.9 fL (80.0-100.0); MEAN PLATELET VOLUME 8.4 fL (7.4-10.4); MONOCYTES 8.1 % (2-11); NEUTROPHILS 60.3 % (40-80); PLATELET COUNT 413 10x3/uL (130-400); RBC 3.04 10x6/uL (4.20-6.10); RDW 14.3 % (11.5-14.5); WBC 8.1 10x3/uL (4.8-10.8)
[2017-07-27 07:07] LABS: ALBUMIN 2.3 g/dL (3.4-5.0); ALKALINE PHOSPHATASE 93 U/L (46-116); CALC OSMOLALITY 276 mosm/kg (275-300); CALCIUM 9.1 mg/dL (8.5-10.1); CARBON DIOXIDE 28.6 mmol/L (21.0-32.0); CHLORIDE - SERUM 100 mmol/L (98-107); GLUCOSE 242 mg/dL (74-106); POTASSIUM - SERUM 3.6 mmol/L (3.5-5.1); PROTEIN - SERUM 8.2 g/dL (6.4-8.2); SODIUM 135 mmol/L (136-145); UREA NITROGEN 9 mg/dL (7-18); eGFR NON AFRICAN AMERICAN 86 mL/min (90-120)
[2017-07-27 07:08] LABS: ALT (SGPT) 13 U/L (10-68)
[2017-07-27 08:59] VITALS: BP 142/86
[2017-07-27 12:00] VITALS: BP 152/85
[2017-07-27 16:50] VITALS: BP 165/84
[2017-07-27 20:00] VITALS: BP 149/87
[2017-07-28 01:00] VITALS: BP 134/77
[2017-07-28 05:30] VITALS: BP 130/71
[2017-07-28 05:31] LABS: BASOPHILS 0.4 % (0-2); EOSINOPHILS 4.3 % (0-7); HEMATOCRIT 26.1 % (42.0-54.0); IMMATURE GRANULOCYTES 0.2 % (0-5); LYMPHOCYTES 24.8 % (15-50); MCH 28.8 pg (26.0-34.0); MCHC 34.5 g/dL (31.0-37.0); MCV 83.7 fL (80.0-100.0); MEAN PLATELET VOLUME 8.3 fL (7.4-10.4); MONOCYTES 9.3 % (2-11); PLATELET COUNT 391 10x3/uL (130-400); RBC 3.12 10x6/uL (4.20-6.10); RDW 14.2 % (11.5-14.5); WBC 8.4 10x3/uL (4.8-10.8)
[2017-07-28 05:44] LABS: ALBUMIN 2.4 g/dL (3.4-5.0); ALKALINE PHOSPHATASE 94 U/L (46-116); ALT (SGPT) 15 U/L (10-68); BILIRUBIN - TOTAL 0.48 mg/dL (0.2-1.3); CALC OSMOLALITY 278 mosm/kg (275-300); CARBON DIOXIDE 28.2 mmol/L (21.0-32.0); CHLORIDE - SERUM 101 mmol/L (98-107); CREATININE - SERUM 0.9 mg/dL (0.6-1.3); POTASSIUM - SERUM 3.6 mmol/L (3.5-5.1); PROTEIN - SERUM 8.3 g/dL (6.4-8.2); SODIUM 138 mmol/L (136-145); UREA NITROGEN 11 mg/dL (7-18); eGFR NON AFRICAN AMERICAN > 90 mL/min (90-120)
[2017-07-28 05:45] LABS: GLUCOSE 166 mg/dL (74-106)
[2017-07-28 08:54] VITALS: BP 154/87
[2017-07-28 12:33] VITALS: BP 174/101
[2017-07-28 16:34] VITALS: BP 154/79
[2017-07-28 20:00] VITALS: BP 145/85
[2017-07-29 01:00] VITALS: BP 118/72
[2017-07-29 06:11] VITALS: BP 139/87
[2017-07-29 09:04] VITALS: BP 146/80
[2017-07-29 11:35] VITALS: BP 138/75
[2017-07-29 13:16] LABS: BASOPHILS 0.4 % (0-2); EOSINOPHILS 5.4 % (0-7); HEMATOCRIT 27.8 % (42.0-54.0); HEMOGLOBIN 9.5 g/dL (13.5-17.5); IMMATURE GRANULOCYTES 0.1 % (0-5); LYMPHOCYTES 25.3 % (15-50); MCH 28.4 pg (26.0-34.0); MCHC 34.2 g/dL (31.0-37.0); MEAN PLATELET VOLUME 8.1 fL (7.4-10.4); MONOCYTES 8.5 % (2-11); NEUTROPHILS 60.3 % (40-80); PLATELET COUNT 332 10x3/uL (130-400); RBC 3.35 10x6/uL (4.20-6.10); RDW 14.1 % (11.5-14.5); WBC 7.9 10x3/uL (4.8-10.8)
[2017-07-29 13:28] LABS: CALC OSMOLALITY 273 mosm/kg (275-300); CALCIUM 9.1 mg/dL (8.5-10.1); CARBON DIOXIDE 26.2 mmol/L (21.0-32.0); CHLORIDE - SERUM 101 mmol/L (98-107); GLUCOSE 229 mg/dL (74-106); POTASSIUM - SERUM 3.9 mmol/L (3.5-5.1); SODIUM 134 mmol/L (136-145); UREA NITROGEN 11 mg/dL (7-18); eGFR NON AFRICAN AMERICAN 86 mL/min (90-120)
[2017-07-29 15:36] VITALS: BP 141/75
[2017-07-29 20:00] VITALS: BP 145/80
[2017-07-30] VITALS (7 sets, daily range): BP systolic 130–153; BP diastolic 54–85
[2017-07-30 04:45] LABS: BASOPHILS 0.4 % (0-2); EOSINOPHILS 5.4 % (0-7); HEMOGLOBIN 9.2 g/dL (13.5-17.5); IMMATURE GRANULOCYTES 0.1 % (0-5); LYMPHOCYTES 30.6 % (15-50); MCH 28.4 pg (26.0-34.0); MCHC 34.1 g/dL (31.0-37.0); MCV 83.3 fL (80.0-100.0); MEAN PLATELET VOLUME 8.4 fL (7.4-10.4); MONOCYTES 8.3 % (2-11); NEUTROPHILS 55.2 % (40-80); PLATELET COUNT 333 10x3/uL (130-400); RBC 3.24 10x6/uL (4.20-6.10); RDW 14.2 % (11.5-14.5); WBC 6.9 10x3/uL (4.8-10.8)
[2017-07-30 05:13] LABS: ALBUMIN 2.5 g/dL (3.4-5.0); ALKALINE PHOSPHATASE 100 U/L (46-116); ALT (SGPT) 17 U/L (10-68); CALCIUM 9.1 mg/dL (8.5-10.1); CARBON DIOXIDE 27.9 mmol/L (21.0-32.0); GLUCOSE 242 mg/dL (74-106); PROTEIN - SERUM 8.3 g/dL (6.4-8.2); UREA NITROGEN 13 mg/dL (7-18); eGFR NON AFRICAN AMERICAN 86 mL/min (90-120)
[2017-07-30 05:46] LABS: CALC OSMOLALITY 283 mosm/kg (275-300); CHLORIDE - SERUM 103 mmol/L (98-107); POTASSIUM - SERUM 3.8 mmol/L (3.5-5.1); SODIUM 138 mmol/L (136-145)
[2017-07-31 05:32] VITALS: BP 122/68
[2017-07-31 05:44] LABS: BASOPHILS 0.3 % (0-2); EOSINOPHILS 6.5 % (0-7); HEMATOCRIT 27.7 % (42.0-54.0); HEMOGLOBIN 9.3 g/dL (13.5-17.5); IMMATURE GRANULOCYTES 0.3 % (0-5); LYMPHOCYTES 27.6 % (15-50); MCH 28.3 pg (26.0-34.0); MCHC 33.6 g/dL (31.0-37.0); MCV 84.2 fL (80.0-100.0); MEAN PLATELET VOLUME 8.4 fL (7.4-10.4); NEUTROPHILS 55.3 % (40-80); PLATELET COUNT 321 10x3/uL (130-400); RBC 3.29 10x6/uL (4.20-6.10); RDW 14.2 % (11.5-14.5); WBC 7.3 10x3/uL (4.8-10.8)
[2017-07-31 06:05] LABS: ALBUMIN 2.5 g/dL (3.4-5.0); ALKALINE PHOSPHATASE 88 U/L (46-116); ALT (SGPT) 20 U/L (10-68); BILIRUBIN - TOTAL 0.39 mg/dL (0.2-1.3); CALC OSMOLALITY 281 mosm/kg (275-300); CALCIUM 8.8 mg/dL (8.5-10.1); CARBON DIOXIDE 24.9 mmol/L (21.0-32.0); CHLORIDE - SERUM 101 mmol/L (98-107); CREATININE - SERUM 0.9 mg/dL (0.6-1.3); GLUCOSE 245 mg/dL (74-106); POTASSIUM - SERUM 3.6 mmol/L (3.5-5.1); PROTEIN - SERUM 8.2 g/dL (6.4-8.2); SODIUM 137 mmol/L (136-145); UREA NITROGEN 12 mg/dL (7-18); eGFR NON AFRICAN AMERICAN > 90 mL/min (90-120)
[2017-07-31 07:39] VITALS: BP 152/87
[2017-07-31 09:13] VITALS: BP 157/91
[2017-07-31 11:58] VITALS: BP 141/84
[2017-07-31 16:47] VITALS: BP 148/84
[2017-07-31 20:38] VITALS: BP 144/68
[2017-08-01 00:28] VITALS: BP 121/70
[2017-08-01 05:41] VITALS: BP 129/69
[2017-08-01 05:50] LABS: BASOPHILS 0.3 % (0-2); EOSINOPHILS 6.2 % (0-7); HEMATOCRIT 27.9 % (42.0-54.0); HEMOGLOBIN 9.4 g/dL (13.5-17.5); IMMATURE GRANULOCYTES 0.2 % (0-5); LYMPHOCYTES 33.6 % (15-50); MCH 28.3 pg (26.0-34.0); MCHC 33.7 g/dL (31.0-37.0); MEAN PLATELET VOLUME 8.7 fL (7.4-10.4); MONOCYTES 9.6 % (2-11); NEUTROPHILS 50.1 % (40-80); PLATELET COUNT 318 10x3/uL (130-400); RBC 3.32 10x6/uL (4.20-6.10); RDW 14.2 % (11.5-14.5); WBC 6.5 10x3/uL (4.8-10.8)
[2017-08-01 06:07] LABS: ALBUMIN 2.6 g/dL (3.4-5.0); ALKALINE PHOSPHATASE 103 U/L (46-116); ALT (SGPT) 22 U/L (10-68); CALCIUM 9.3 mg/dL (8.5-10.1); CARBON DIOXIDE 26.8 mmol/L (21.0-32.0); CHLORIDE - SERUM 101 mmol/L (98-107); POTASSIUM - SERUM 3.7 mmol/L (3.5-5.1); PROTEIN - SERUM 8.6 g/dL (6.4-8.2); SODIUM 136 mmol/L (136-145); UREA NITROGEN 13 mg/dL (7-18); eGFR NON AFRICAN AMERICAN 86 mL/min (90-120)
[2017-08-01 06:08] LABS: CALC OSMOLALITY 283 mosm/kg (275-300); GLUCOSE 317 mg/dL (74-106)
[2017-08-01 09:16] VITALS: BP 125/67
[2017-08-01 12:54] VITALS: BP 142/78
[2017-08-01 17:05] VITALS: BP 146/82
[2017-08-01 21:25] VITALS: BP 154/86
[2017-08-02 00:50] VITALS: BP 123/73
[2017-08-02 04:50] VITALS: BP 118/70
[2017-08-02 05:54] LABS: BASOPHILS 0.4 % (0-2); EOSINOPHILS 7.1 % (0-7); HEMATOCRIT 28.1 % (42.0-54.0); HEMOGLOBIN 9.5 g/dL (13.5-17.5); IMMATURE GRANULOCYTES 0.1 % (0-5); LYMPHOCYTES 36.2 % (15-50); MCHC 33.8 g/dL (31.0-37.0); MCV 82.9 fL (80.0-100.0); MEAN PLATELET VOLUME 8.6 fL (7.4-10.4); MONOCYTES 10.4 % (2-11); NEUTROPHILS 45.8 % (40-80); PLATELET COUNT 319 10x3/uL (130-400); RBC 3.39 10x6/uL (4.20-6.10); RDW 14.1 % (11.5-14.5)
[2017-08-02 06:14] LABS: ALBUMIN 2.5 g/dL (3.4-5.0); ALKALINE PHOSPHATASE 87 U/L (46-116); ALT (SGPT) 21 U/L (10-68); BILIRUBIN - TOTAL 0.53 mg/dL (0.2-1.3); CALC OSMOLALITY 279 mosm/kg (275-300); CARBON DIOXIDE 25.9 mmol/L (21.0-32.0); CHLORIDE - SERUM 100 mmol/L (98-107); CREATININE - SERUM 0.9 mg/dL (0.6-1.3); POTASSIUM - SERUM 3.7 mmol/L (3.5-5.1); PROTEIN - SERUM 8.4 g/dL (6.4-8.2); SODIUM 136 mmol/L (136-145); UREA NITROGEN 14 mg/dL (7-18); eGFR NON AFRICAN AMERICAN > 90 mL/min (90-120)
[2017-08-02 06:17] LABS: GLUCOSE 223 mg/dL (74-106)
[2017-08-02 08:08] VITALS: BP 142/88
[2017-08-02 11:06] VITALS: BP 131/76
[2017-08-02 15:45] VITALS: BP 143/78
[2017-08-02 20:00] VITALS: BP 125/92
[2017-08-03 01:00] VITALS: BP 122/74
[2017-08-03 05:11] VITALS: BP 127/79
[2017-08-03 06:10] LABS: BASOPHILS 0.4 % (0-2); EOSINOPHILS 7.4 % (0-7); HEMATOCRIT 28.9 % (42.0-54.0); HEMOGLOBIN 9.7 g/dL (13.5-17.5); IMMATURE GRANULOCYTES 0.1 % (0-5); LYMPHOCYTES 36.3 % (15-50); MCH 28.2 pg (26.0-34.0); MCHC 33.6 g/dL (31.0-37.0); MEAN PLATELET VOLUME 8.8 fL (7.4-10.4); NEUTROPHILS 44.8 % (40-80); PLATELET COUNT 321 10x3/uL (130-400); RBC 3.44 10x6/uL (4.20-6.10); RDW 14.3 % (11.5-14.5); WBC 6.8 10x3/uL (4.8-10.8)
[2017-08-03 06:39] LABS: ALBUMIN 2.8 g/dL (3.4-5.0); ALKALINE PHOSPHATASE 93 U/L (46-116); ALT (SGPT) 25 U/L (10-68); CALC OSMOLALITY 283 mosm/kg (275-300); CALCIUM 9.5 mg/dL (8.5-10.1); CARBON DIOXIDE 28.1 mmol/L (21.0-32.0); CHLORIDE - SERUM 104 mmol/L (98-107); CREATININE - SERUM 0.9 mg/dL (0.6-1.3); GLUCOSE 191 mg/dL (74-106); POTASSIUM - SERUM 3.8 mmol/L (3.5-5.1); PROTEIN - SERUM 8.7 g/dL (6.4-8.2); SODIUM 139 mmol/L (136-145); UREA NITROGEN 15 mg/dL (7-18); eGFR NON AFRICAN AMERICAN > 90 mL/min (90-120)
[2017-08-03 08:16] VITALS: BP 147/69
[2017-08-03] MEDS ORDERED: FERREX 150 PLUS1 CAP PO (09:17)
[2017-08-03] MEDS ORDERED: HUMULIN R100 U/ML SC (09:52)
[2017-08-03 11:56] VITALS: BP 154/83
[2017-08-03 15:48] VITALS: BP 152/87
== END 2017-08-03 19:04 | DRG 698 ==
LOC: D.ER 10:04 → D.M2 13:22 → D.EDHOLD 13:22 → D.ICU 13:22 → D.M2 07-13 18:06 → D.SDCHOLD 07-18 10:45 → D.M2 07-18 10:49
PROVIDERS: Emergency Medicine; Family Medicine; Internal Medicine Nephrology; Nurse Practitioner Family; Student in an Organized Health Care Education/Training Program
PROC: 05HB33Z Insertion of Infusion Device into Right Basilic Vein, Percutaneous Approach (ICD-10-PCS; 2017-07-13)
PROC: B54MZZA Ultrasonography of Right Upper Extremity Veins, Guidance (ICD-10-PCS; 2017-07-13)
PROC: 05HB33Z Insertion of Infusion Device into Right Basilic Vein, Percutaneous Approach (ICD-10-PCS; principal; 2017-07-17)
PROC: B54MZZA Ultrasonography of Right Upper Extremity Veins, Guidance (ICD-10-PCS; 2017-07-17)
DX: T83.511A Infection and inflammatory reaction due to indwelling urethral catheter, initial encounter (principal); A41.89 Other specified sepsis; N17.9 Acute kidney failure, unspecified; G82.20 Paraplegia, unspecified; I38 Endocarditis, valve unspecified; E44.0 Moderate protein-calorie malnutrition; N39.0 Urinary tract infection, site not specified; Y84.6 Urinary catheterization as the cause of abnormal reaction of the patient, or of later complication, without mention of misadventure at the time of the procedure; E11.42 Type 2 diabetes mellitus with diabetic polyneuropathy; E11.51 Type 2 diabetes mellitus with diabetic peripheral angiopathy without gangrene; N31.9 Neuromuscular dysfunction of bladder, unspecified; E78.5 Hyperlipidemia, unspecified; I10 Essential (primary) hypertension; Z89.512 Acquired absence of left leg below knee; M48.50XD Collapsed vertebra, not elsewhere classified, site unspecified, subsequent encounter for fracture with routine healing; R19.7 Diarrhea, unspecified; D63.8 Anemia in other chronic diseases classified elsewhere; K64.8 Other hemorrhoids; Z68.32 Body mass index [BMI] 32.0-32.9, adult

== ENCOUNTER 2017-08-24 00:09 | Inpatient (IN) | payer MEDICARE ==
[~2017-08-24] VITALS: Ht 175.3 cm; Wt 100.2 kg
[~2017-08-24 00:09] MED LIST changes: -ACETAMINOPHEN325 MG PO; -CALMOSEPTINE OI71 GM TOPICAL; -OMEGA 3 FISH OI1 CAP PO; -OMNICEF300 MG PO; -VITAMIN B-1100 M1 PO; -VITAMIN B650 MG PO; -VITAMIN C1000 MG PO; -VITAMIN D31000 UNI2 PO; -ZOFRAN4 MG PO; -ZOSYN 3.3753.375 G1 IV
[2017-08-24 00:49] LABS: APPEARANCE CLOUDY (CLEAR); BACTERIA MODERATE /hpf (NONE SEEN); BILIRUBIN NEGATIVE (NEGATIVE); COLOR YELLOW (YELLOW); EPITHELIAL CELLS RARE /hpf (0-5); GLUCOSE NEGATIVE (NEGATIVE); KETONE NEGATIVE (NEGATIVE); NITRITE NEGATIVE (NEGATIVE); PROTEIN TRACE mg/dL (NEGATIVE); RED CELLS - URINE 0-5 /hpf (0-5); SPECIFIC GRAVITY 1.015 (1.005-1.020); UROBILINOGEN NORMAL (NORMAL); WHITE CELLS - URINE >50 /hpf (0-5)
[2017-08-24 01:05] LABS: BASOPHILS 0.1 % (0-2); EOSINOPHILS 4.3 % (0-7); HEMATOCRIT 24.9 % (42.0-54.0); HEMOGLOBIN 8.3 g/dL (13.5-17.5); IMMATURE GRANULOCYTES 0.4 % (0-5); LYMPHOCYTES 13.7 % (15-50); MCH 27.9 pg (26.0-34.0); MCHC 33.3 g/dL (31.0-37.0); MCV 83.8 fL (80.0-100.0); MEAN PLATELET VOLUME 8.2 fL (7.4-10.4); MONOCYTES 8.1 % (2-11); NEUTROPHILS 73.4 % (40-80); PLATELET COUNT 298 10x3/uL (130-400); RBC 2.97 10x6/uL (4.20-6.10); RDW 14.3 % (11.5-14.5); WBC 17.7 10x3/uL (4.8-10.8)
[2017-08-24 01:19] LABS: ALBUMIN 2.4 g/dL (3.4-5.0); ALKALINE PHOSPHATASE 77 U/L (46-116); ALT (SGPT) 30 U/L (10-68); BILIRUBIN - TOTAL 0.59 mg/dL (0.2-1.3); CALC OSMOLALITY 287 mosm/kg (275-300); CALCIUM 9.2 mg/dL (8.5-10.1); CARBON DIOXIDE 27.3 mmol/L (21.0-32.0); CHLORIDE - SERUM 100 mmol/L (98-107); CREATININE - SERUM 1.4 mg/dL (0.6-1.3); GLUCOSE 201 mg/dL (74-106); POTASSIUM - SERUM 4.2 mmol/L (3.5-5.1); PROTEIN - SERUM 8.8 g/dL (6.4-8.2); SODIUM 135 mmol/L (136-145); UREA NITROGEN 45 mg/dL (7-18); eGFR NON AFRICAN AMERICAN 58 mL/min (90-120)
[2017-08-24 01:26] LABS: KETONE - SERUM NEGATIVE (NEGATIVE)
[2017-08-24] MEDS ORDERED: ZOFRAN4 MG PO (03:29)
[2017-08-24] MEDS ORDERED: CALMOSEPTINE OI71 GM TOPICAL (03:29)
[2017-08-24] MEDS ORDERED: VITAMIN D31000 UNI2 PO (03:35)
[2017-08-24] MEDS ORDERED: VITAMIN B-1100 M1 PO (03:35)
[2017-08-24] MEDS ORDERED: VITAMIN B650 MG PO (03:36)
[2017-08-24] MEDS ORDERED: VITAMIN C1000 MG PO (03:37)
[2017-08-24] MEDS ORDERED: OMEGA 3 FISH OI1 CAP PO (03:38)
[2017-08-24] MEDS ORDERED: ACETAMINOPHEN325 MG PO (03:38)
[2017-08-24 04:00] VITALS: BP 127/63; BMI 32.7
[2017-08-24 06:52] LABS: BASOPHILS 0.1 % (0-2); EOSINOPHILS 4.7 % (0-7); HEMATOCRIT 25.3 % (42.0-54.0); HEMOGLOBIN 8.5 g/dL (13.5-17.5); IMMATURE GRANULOCYTES 0.3 % (0-5); LYMPHOCYTES 13.7 % (15-50); MCH 28.1 pg (26.0-34.0); MCHC 33.6 g/dL (31.0-37.0); MCV 83.8 fL (80.0-100.0); MEAN PLATELET VOLUME 8.2 fL (7.4-10.4); MONOCYTES 8.1 % (2-11); NEUTROPHILS 73.1 % (40-80); PLATELET COUNT 277 10x3/uL (130-400); RBC 3.02 10x6/uL (4.20-6.10); RDW 14.3 % (11.5-14.5); WBC 15.9 10x3/uL (4.8-10.8)
[2017-08-24 07:11] LABS: CALCIUM 8.8 mg/dL (8.5-10.1); CARBON DIOXIDE 24.2 mmol/L (21.0-32.0); CREATININE - SERUM 1.4 mg/dL (0.6-1.3); POTASSIUM - SERUM 4.2 mmol/L (3.5-5.1)
[2017-08-24 09:30] VITALS: BP 123/73
[2017-08-24 13:03] VITALS: BP 140/74
[2017-08-24 14:18] VITALS: Ht 175.3 cm; Wt 100.2 kg
[2017-08-24 16:37] VITALS: BP 130/71
[2017-08-24 21:36] VITALS: BP 151/78
[2017-08-25 01:03] VITALS: BP 121/62
[2017-08-25 05:33] VITALS: BP 116/75
[2017-08-25 05:34] LABS: BASOPHILS 0.2 % (0-2); EOSINOPHILS 4.5 % (0-7); HEMATOCRIT 23.9 % (42.0-54.0); HEMOGLOBIN 7.9 g/dL (13.5-17.5); IMMATURE GRANULOCYTES 0.2 % (0-5); LYMPHOCYTES 17.2 % (15-50); MCH 27.3 pg (26.0-34.0); MCHC 33.1 g/dL (31.0-37.0); MCV 82.7 fL (80.0-100.0); MEAN PLATELET VOLUME 8.2 fL (7.4-10.4); MONOCYTES 9.9 % (2-11); PLATELET COUNT 265 10x3/uL (130-400); RBC 2.89 10x6/uL (4.20-6.10); RDW 13.8 % (11.5-14.5)
[2017-08-25 06:01] LABS: WBC 11.7 10x3/uL (4.8-10.8)
[2017-08-25 06:11] LABS: ALKALINE PHOSPHATASE 80 U/L (46-116); ALT (SGPT) 33 U/L (10-68); BILIRUBIN - TOTAL 0.52 mg/dL (0.2-1.3); CALC OSMOLALITY 277 mosm/kg (275-300); CALCIUM 8.9 mg/dL (8.5-10.1); CARBON DIOXIDE 26.3 mmol/L (21.0-32.0); CHLORIDE - SERUM 102 mmol/L (98-107); CREATININE - SERUM 1.1 mg/dL (0.6-1.3); GLUCOSE 171 mg/dL (74-106); POTASSIUM - SERUM 3.7 mmol/L (3.5-5.1); PROTEIN - SERUM 7.8 g/dL (6.4-8.2); SODIUM 136 mmol/L (136-145); eGFR NON AFRICAN AMERICAN 77 mL/min (90-120)
[2017-08-25 06:16] LABS: UREA NITROGEN 19 mg/dL (7-18)
[2017-08-25 09:10] VITALS: BP 130/71
[2017-08-25 13:25] VITALS: BP 126/71
[2017-08-25 17:10] VITALS: BP 143/76
[2017-08-25 20:00] VITALS: BP 136/69
[2017-08-26] VITALS: BP 125/67
[2017-08-26 04:00] VITALS: BP 124/76
[2017-08-26 07:21] LABS: BASOPHILS 0.2 % (0-2); HEMATOCRIT 24.2 % (42.0-54.0); HEMOGLOBIN 8.1 g/dL (13.5-17.5); IMMATURE GRANULOCYTES 0.2 % (0-5); MCH 27.4 pg (26.0-34.0); MCHC 33.5 g/dL (31.0-37.0); MCV 81.8 fL (80.0-100.0); MEAN PLATELET VOLUME 8.4 fL (7.4-10.4); MONOCYTES 9.4 % (2-11); NEUTROPHILS 61.2 % (40-80); PLATELET COUNT 279 10x3/uL (130-400); RBC 2.96 10x6/uL (4.20-6.10); RDW 13.6 % (11.5-14.5); WBC 8.8 10x3/uL (4.8-10.8)
[2017-08-26 07:41] LABS: CALC OSMOLALITY 279 mosm/kg (275-300); CALCIUM 8.8 mg/dL (8.5-10.1); CARBON DIOXIDE 26.9 mmol/L (21.0-32.0); CHLORIDE - SERUM 102 mmol/L (98-107); GLUCOSE 167 mg/dL (74-106); MAGNESIUM - SERUM 1.2 mg/dL (1.8-2.4); PHOSPHOROUS 4.2 mg/dL (2.5-4.9); POTASSIUM - SERUM 3.7 mmol/L (3.5-5.1); SODIUM 138 mmol/L (136-145); eGFR NON AFRICAN AMERICAN 86 mL/min (90-120)
[2017-08-26 07:42] LABS: UREA NITROGEN 12 mg/dL (7-18)
[2017-08-26 09:15] VITALS: BP 122/73
[2017-08-26 11:33] VITALS: BP 139/73
[2017-08-26 16:10] VITALS: BP 150/85
[2017-08-26 22:40] VITALS: BP 136/76
[2017-08-27 04:24] LABS: BASOPHILS 0.5 % (0-2); EOSINOPHILS 6.7 % (0-7); HEMOGLOBIN 8.1 g/dL (13.5-17.5); IMMATURE GRANULOCYTES 0.2 % (0-5); LYMPHOCYTES 23.8 % (15-50); MCH 27.4 pg (26.0-34.0); MCHC 33.8 g/dL (31.0-37.0); MCV 81.1 fL (80.0-100.0); MEAN PLATELET VOLUME 8.4 fL (7.4-10.4); MONOCYTES 8.9 % (2-11); NEUTROPHILS 59.9 % (40-80); PLATELET COUNT 317 10x3/uL (130-400); RBC 2.96 10x6/uL (4.20-6.10); RDW 13.3 % (11.5-14.5); WBC 9.4 10x3/uL (4.8-10.8)
[2017-08-27 04:26] VITALS: BP 125/70
[2017-08-27 04:47] LABS: ANION GAP 12.3 mmol/L (8-16); CALCIUM 8.7 mg/dL (8.5-10.1); CARBON DIOXIDE 27.4 mmol/L (21.0-32.0); CREATININE - SERUM 1.2 mg/dL (0.6-1.3); POTASSIUM - SERUM 3.7 mmol/L (3.5-5.1)
[2017-08-27 08:23] VITALS: BP 133/80
[2017-08-27 13:53] VITALS: BP 130/86
[2017-08-27 16:41] VITALS: BP 148/81
[2017-08-27 21:26] VITALS: BP 140/78
[2017-08-28 02:09] VITALS: BP 138/76
[2017-08-28 04:58] LABS: BASOPHILS 0.6 % (0-2); EOSINOPHILS 8.5 % (0-7); HEMATOCRIT 23.8 % (42.0-54.0); IMMATURE GRANULOCYTES 0.3 % (0-5); MCH 27.3 pg (26.0-34.0); MCHC 33.6 g/dL (31.0-37.0); MCV 81.2 fL (80.0-100.0); MEAN PLATELET VOLUME 8.4 fL (7.4-10.4); MONOCYTES 8.5 % (2-11); NEUTROPHILS 53.1 % (40-80); PLATELET COUNT 311 10x3/uL (130-400); RBC 2.93 10x6/uL (4.20-6.10); RDW 13.4 % (11.5-14.5)
[2017-08-28 05:20] LABS: ALBUMIN 2.1 g/dL (3.4-5.0); ALKALINE PHOSPHATASE 71 U/L (46-116); ALT (SGPT) 21 U/L (10-68); CALC OSMOLALITY 281 mosm/kg (275-300); CARBON DIOXIDE 27.4 mmol/L (21.0-32.0); CHLORIDE - SERUM 101 mmol/L (98-107); CREATININE - SERUM 1.1 mg/dL (0.6-1.3); GLUCOSE 285 mg/dL (74-106); MAGNESIUM - SERUM 1.5 mg/dL (1.8-2.4); POTASSIUM - SERUM 3.6 mmol/L (3.5-5.1); SODIUM 136 mmol/L (136-145); UREA NITROGEN 12 mg/dL (7-18); eGFR NON AFRICAN AMERICAN 77 mL/min (90-120)
[2017-08-28 05:24] VITALS: BP 114/68
[2017-08-28] MEDS ORDERED: OMNICEF300 MG PO (07:29)
[2017-08-28] MEDS ORDERED: ZOSYN 3.3753.375 G1 IV (08:12)
[2017-08-28 08:48] VITALS: BP 150/81
== END 2017-08-28 13:56 | DRG 872 ==
LOC: D.ER 00:09 → D.MS 02:38
PROVIDERS: Family Medicine; Physician Assistant Medical
DX: A41.59 Other Gram-negative sepsis (principal); N39.0 Urinary tract infection, site not specified; E44.0 Moderate protein-calorie malnutrition; E11.9 Type 2 diabetes mellitus without complications; Z79.4 Long term (current) use of insulin; G83.9 Paralytic syndrome, unspecified; N31.9 Neuromuscular dysfunction of bladder, unspecified; Z68.32 Body mass index [BMI] 32.0-32.9, adult; D63.8 Anemia in other chronic diseases classified elsewhere

== ENCOUNTER 2018-01-02 12:48 | Inpatient (IN) | payer MEDICARE, MEDICAID ==
[~2018-01-02] VITALS: Ht 175.3 cm; Wt 109.3 kg
[~2018-01-02 12:48] MED LIST changes: +ACETAMINOPHEN325 MG PO; +CALMOSEPTINE OI71 GM TOPICAL; +OMEGA 3 FISH OI1 CAP PO; +OMNICEF300 MG PO; +VITAMIN B-1100 M1 PO; +VITAMIN B650 MG PO; +VITAMIN C1000 MG PO; +VITAMIN D31000 UNI2 PO; +ZOFRAN4 MG PO; +ZOSYN 3.3753.375 G1 IV
[2018-01-02 14:10] LABS: BASOPHILS 0.3 % (0-2); EOSINOPHILS 7.5 % (0-7); HEMATOCRIT 35.7 % (42.0-54.0); HEMOGLOBIN 11.2 g/dL (13.5-17.5); IMMATURE GRANULOCYTES 0.1 % (0-5); LYMPHOCYTES 23.1 % (15-50); MCH 27.1 pg (26.0-34.0); MCHC 31.4 g/dL (31.0-37.0); MCV 86.2 fL (80.0-100.0); MEAN PLATELET VOLUME 9.1 fL (7.4-10.4); MONOCYTES 13.7 % (2-11); NEUTROPHILS 55.3 % (40-80); PLATELET COUNT 194 10x3/uL (130-400); RBC 4.14 10x6/uL (4.20-6.10); RDW 15.7 % (11.5-14.5); WBC 7.4 10x3/uL (4.8-10.8)
[2018-01-02 14:42] LABS: ALBUMIN 2.6 g/dL (3.4-5.0); ALKALINE PHOSPHATASE 91 U/L (46-116); ALT (SGPT) 44 U/L (10-68); BILIRUBIN - TOTAL 0.89 mg/dL (0.2-1.3); CALCIUM 8.9 mg/dL (8.5-10.1); CHLORIDE - SERUM 95 mmol/L (98-107); MAGNESIUM - SERUM 1.8 mg/dL (1.8-2.4); POTASSIUM - SERUM 3.8 mmol/L (3.5-5.1); PRO BNP 1224 pg/mL (0-125); PROTEIN - SERUM 7.8 g/dL (6.4-8.2); SODIUM 139 mmol/L (136-145); THYROID STIMULATING HORMONE 1.08 uIU/mL (0.36-3.74); UREA NITROGEN 10 mg/dL (7-18); eGFR NON AFRICAN AMERICAN 86 mL/min (90-120)
[2018-01-02 14:45] LABS: CALC OSMOLALITY 277 mosm/kg (275-300); CARBON DIOXIDE 44.9 mmol/L (21.0-32.0); GLUCOSE 122 mg/dL (74-106)
[2018-01-02 21:18] VITALS: BP 120/63
[2018-01-03] VITALS (7 sets, daily range): BP systolic 99–150; BP diastolic 48–69; Ht 175.3 cm; Wt 109.3 kg
[2018-01-03] MEDS ORDERED: BACLOFEN10 MG PO (03:35)
[2018-01-03 09:59] LABS: HEMATOCRIT 33.6 % (42.0-54.0); HEMOGLOBIN 10.4 g/dL (13.5-17.5); MCH 26.6 pg (26.0-34.0); MCV 85.9 fL (80.0-100.0); MEAN PLATELET VOLUME 9.1 fL (7.4-10.4); PLATELET COUNT 188 10x3/uL (130-400); RBC 3.91 10x6/uL (4.20-6.10); RDW 15.8 % (11.5-14.5); WBC 8.3 10x3/uL (4.8-10.8)
[2018-01-03 10:16] LABS: ALBUMIN 2.3 g/dL (3.4-5.0); ALKALINE PHOSPHATASE 80 U/L (46-116); ALT (SGPT) 37 U/L (10-68); CALCIUM 8.8 mg/dL (8.5-10.1); CHLORIDE - SERUM 92 mmol/L (98-107); MAGNESIUM - SERUM 1.5 mg/dL (1.8-2.4); POTASSIUM - SERUM 3.3 mmol/L (3.5-5.1); PROTEIN - SERUM 7.7 g/dL (6.4-8.2); SODIUM 135 mmol/L (136-145); eGFR NON AFRICAN AMERICAN 86 mL/min (90-120)
[2018-01-03 10:18] LABS: CALC OSMOLALITY 275 mosm/kg (275-300); GLUCOSE 205 mg/dL (74-106); UREA NITROGEN 13 mg/dL (7-18)
[2018-01-03 10:19] LABS: APTT 38.8 SECONDS (22.8-39.4); CARBON DIOXIDE 44.8 mmol/L (21.0-32.0); INR 1.25 (0.85-1.17); PROTIME 15.2 SECONDS (11.6-15.0)
[2018-01-03 10:46] LABS: EOSINOPHILS 6 % (0-7); LYMPHOCYTES 12 % (15-50); MONOCYTES 6 % (2-11); NEUTROPHILS 74 % (40-80); PLATELET ESTIMATE NORMAL
[2018-01-04 04:00] VITALS: BP 112/57
[2018-01-04 05:03] LABS: BASOPHILS 0.3 % (0-2); EOSINOPHILS 5.6 % (0-7); HEMATOCRIT 34.5 % (42.0-54.0); HEMOGLOBIN 10.9 g/dL (13.5-17.5); IMMATURE GRANULOCYTES 0.1 % (0-5); LYMPHOCYTES 23.3 % (15-50); MCH 26.8 pg (26.0-34.0); MCHC 31.6 g/dL (31.0-37.0); MEAN PLATELET VOLUME 9.5 fL (7.4-10.4); MONOCYTES 11.8 % (2-11); NEUTROPHILS 58.9 % (40-80); PLATELET COUNT 194 10x3/uL (130-400); RBC 4.06 10x6/uL (4.20-6.10); RDW 15.4 % (11.5-14.5); WBC 7.4 10x3/uL (4.8-10.8)
[2018-01-04 05:14] LABS: CALCIUM 9.3 mg/dL (8.5-10.1); CHLORIDE - SERUM 92 mmol/L (98-107); POTASSIUM - SERUM 3.4 mmol/L (3.5-5.1); SODIUM 134 mmol/L (136-145); UREA NITROGEN 13 mg/dL (7-18); eGFR NON AFRICAN AMERICAN 86 mL/min (90-120)
[2018-01-04 05:19] LABS: CALC OSMOLALITY 268 mosm/kg (275-300); GLUCOSE 120 mg/dL (74-106)
[2018-01-04 05:20] LABS: CARBON DIOXIDE 46.4 mmol/L (21.0-32.0)
[2018-01-04 08:04] VITALS: BP 115/67
[2018-01-04 10:58] VITALS: BP 116/59
[2018-01-04 15:24] VITALS: BP 109/59
[2018-01-04 21:04] VITALS: BP 124/71
[2018-01-05 05:12] LABS: BASOPHILS 0.3 % (0-2); EOSINOPHILS 9.8 % (0-7); HEMATOCRIT 35.4 % (42.0-54.0); HEMOGLOBIN 10.9 g/dL (13.5-17.5); IMMATURE GRANULOCYTES 0.1 % (0-5); LYMPHOCYTES 24.3 % (15-50); MCH 26.4 pg (26.0-34.0); MCHC 30.8 g/dL (31.0-37.0); MCV 85.7 fL (80.0-100.0); MEAN PLATELET VOLUME 9.3 fL (7.4-10.4); NEUTROPHILS 55.5 % (40-80); PLATELET COUNT 191 10x3/uL (130-400); RBC 4.13 10x6/uL (4.20-6.10); RDW 15.2 % (11.5-14.5)
[2018-01-05 05:35] LABS: CALCIUM 9.1 mg/dL (8.5-10.1); CHLORIDE - SERUM 93 mmol/L (98-107); POTASSIUM - SERUM 3.7 mmol/L (3.5-5.1); SODIUM 135 mmol/L (136-145); eGFR NON AFRICAN AMERICAN 86 mL/min (90-120)
[2018-01-05 05:37] LABS: CALC OSMOLALITY 275 mosm/kg (275-300); GLUCOSE 176 mg/dL (74-106); UREA NITROGEN 17 mg/dL (7-18)
[2018-01-05 05:38] LABS: CARBON DIOXIDE 45.3 mmol/L (21.0-32.0)
[2018-01-05 05:48] VITALS: BP 103/62
[2018-01-05] MEDS ORDERED: PROTONIX40 MG PO (08:54)
[2018-01-05] MEDS ORDERED: LASIX40 MG PO (08:55)
[2018-01-05] MEDS ORDERED: K-DUR20 MEQ PO (08:56)
[2018-01-05 20:29] VITALS: BP 124/64
== END 2018-01-05 22:05 | DRG 292 ==
LOC: D.ER 12:48 → D.M2 15:42 → D.EDHOLD 15:42 → D.M2 16:30
PROVIDERS: Emergency Medicine; Internal Medicine Nephrology
PROC: 05HC33Z Insertion of Infusion Device into Left Basilic Vein, Percutaneous Approach (ICD-10-PCS; principal; 2018-01-02)
PROC: B54NZZA Ultrasonography of Left Upper Extremity Veins, Guidance (ICD-10-PCS; 2018-01-02)
DX: I11.0 Hypertensive heart disease with heart failure (principal); G82.20 Paraplegia, unspecified; I50.33 Acute on chronic diastolic (congestive) heart failure; E11.51 Type 2 diabetes mellitus with diabetic peripheral angiopathy without gangrene; E78.5 Hyperlipidemia, unspecified; N31.9 Neuromuscular dysfunction of bladder, unspecified; D64.9 Anemia, unspecified; E87.6 Hypokalemia; E83.42 Hypomagnesemia; K59.09 Other constipation; L89.322 Pressure ulcer of left buttock, stage 2; L89.892 Pressure ulcer of other site, stage 2